=== PATIENT | female | born 1980 | race Caucasian/White ===

== ENCOUNTER 2019-01-27 21:33 | Emergency (ER) | payer OTHER ==
[~2019-01-27] VITALS: Ht 182.9 cm; Wt 163.3 kg
[2019-01-27] MEDS ORDERED: NEURONTIN800 MG (21:52)
[2019-01-27] MEDS ORDERED: HYDROCHLOROTHIA50 MG (21:52)
[2019-01-27] MEDS ORDERED: [UNRECOGNIZED DRUG - OTHER] (21:52)
[2019-01-27] MEDS ORDERED: LEVO-T75 MCG (21:52)
[2019-01-27] MEDS ORDERED: ULTRAM50 MG (21:53)
[2019-01-27] MEDS ORDERED: MOTRIN PM CAPL1 EACH (21:53)
[2019-01-28] MEDS ORDERED: BACTRIM DS TAB1 EACH PO (06:50)
[2019-01-28] MEDS ORDERED: MIRALAX510 GM PO (06:50)
[2019-01-28] MEDS ORDERED: INTESTINEX680 M1 PO (06:50)
== END 2019-01-28 07:29 ==
LOC: ER 21:33
DX: N39.0 Urinary tract infection, site not specified (principal); R10.31 Right lower quadrant pain

== ENCOUNTER 2019-05-04 16:41 | Emergency (ER) | payer OTHER ==
[~2019-05-04] VITALS: Ht 152.4 cm; Wt 166.9 kg
[~2019-05-04 16:41] MED LIST: BACTRIM DS TAB1 EACH PO; HYDROCHLOROTHIA50 MG; INTESTINEX680 M1 PO; LEVO-T75 MCG; MIRALAX510 GM PO; MOTRIN PM CAPL1 EACH; NEURONTIN800 MG; ULTRAM50 MG; [UNRECOGNIZED DRUG - OTHER]
== END 2019-05-04 20:36 | disposition home or self-care (01) ==
LOC: ER 16:41
DX: M54.5 Low back pain (principal)

== ENCOUNTER → 2019-06-29 | Outpatient (CLI) | payer OTHER | END | disposition home or self-care (01) | LOC: MRI 07:29 | DX: M54.5 Low back pain (principal) | CPT/HCPCS: 72148 ==

== ENCOUNTER 2020-02-06 07:47 | Outpatient (CLI) | payer OTHER | END 2020-02-06 07:59 | disposition home or self-care (01) | LOC: EKG 07:47 | PROVIDERS: ATTEND General Practice | DX: M48.062 Spinal stenosis, lumbar region with neurogenic claudication (principal); M43.16 Spondylolisthesis, lumbar region ==

== ENCOUNTER 2020-04-30 08:43 | Outpatient (CLI) | payer OTHER | END 2020-04-30 08:44 | disposition home or self-care (01) | LOC: RAD 08:43 | PROVIDERS: ATTEND General Practice | DX: M43.8X7 Other specified deforming dorsopathies, lumbosacral region (principal); M48.061 Spinal stenosis, lumbar region without neurogenic claudication ==

== ENCOUNTER 2020-08-02 08:38 | Outpatient (CLI) | payer OTHER | END 2020-08-02 08:40 | disposition home or self-care (01) | LOC: RAD 08:38 | DX: M51.36 Other intervertebral disc degeneration, lumbar region (principal) ==

== ENCOUNTER 2020-10-30 08:00 | Outpatient (CLI) | payer OTHER | END 2020-10-30 08:30 | disposition home or self-care (01) | LOC: PPH VACUNA 08:00 | DX: Z23 Encounter for immunization (principal) ==

== ENCOUNTER 2020-11-19 08:00 | Outpatient (CLI) | payer OTHER | END 2020-11-19 08:30 | disposition home or self-care (01) | LOC: PPH VACUNA 08:00 | DX: Z23 Encounter for immunization (principal) ==

== ENCOUNTER 2020-12-12 10:01 | Outpatient (CLI) | payer OTHER | END 2020-12-12 10:06 | disposition home or self-care (01) | LOC: RAD 10:01 | DX: M48.062 Spinal stenosis, lumbar region with neurogenic claudication (principal) ==

== ENCOUNTER 2021-10-30 08:34 | Outpatient (CLI) | payer OTHER | END 2021-10-30 08:41 | disposition home or self-care (01) | LOC: RAD 08:34 | DX: M25.551 Pain in right hip (principal); M25.552 Pain in left hip ==

== ENCOUNTER 2022-01-29 08:10 | Outpatient (CLI) | payer OTHER | END 2022-01-29 08:25 | disposition home or self-care (01) | LOC: PPH VACUNA 08:10 | PROVIDERS: ATTEND Emergency Medicine Pediatric Emergency Medicine | DX: Z23 Encounter for immunization (principal) ==

== ENCOUNTER 2023-04-20 07:24 | Outpatient (CLI) | payer OTHER | END 2023-04-20 07:29 | disposition home or self-care (01) | LOC: SONOGRAMA 07:24 | PROVIDERS: ATTEND General Practice | DX: E03.9 Hypothyroidism, unspecified (principal) ==

== ENCOUNTER 2024-12-11 19:42 | Emergency (ER) | payer OTHER ==
[~2024-12-11] VITALS: Ht 182.9 cm; Wt 167.8 kg
[2024-12-11] MEDS ORDERED: FAMOtidine 10 MG/ML (4ML VIAL) IV ONE (20:45)
[2024-12-11] MEDS ORDERED: 0.9 % SODIUM CHLORIDE 1,000 ML IV ONE (20:45)
[2024-12-11 21:54] LABS: BASO % 0.6 % (0.1-1.2); EOS # 0.07 (0.04-0.54); EOS % 0.6 % (0.7-7.0); LYMPH # 2.30 (1.18-3.74); LYMPH % 18.7 % (19.3-53.1); MEAN PLATELET VOLUME 11.60 fl (9.4-12.4); MONO # 0.90 (0.24-0.82); MONO % 7.3 % (4.7-12.5); NEUT # 8.88 (1.56-6.13); NEUT % 72.4 % (34.0-71.1); RED CELL DISTRIBUTION WIDTH 12.9 % (11.6-14.4)
[2024-12-11 21:57] LABS: URINE APPEARANCE Clear; URINE BILIRRUBIN Negative (NEGATIVE); URINE BLOOD Small; URINE COLOR Yellow; URINE GLUCOSE Negative (NEGATIVE); URINE KETONE Negative (NEGATIVE); URINE LEUKOCYTE Moderate; URINE NITRATE Negative; URINE PROTEIN Negative (NEGATIVE); URINE UROBILINOGEN 0.2 E.U./dl
[2024-12-11 21:58] LABS: URINE BACTERIA 2751.3 uL (0.0-1933); URINE EPITHELIAL CELLS 37.6 uL (0.0-38.8); URINE RBC 7.6 uL (0.0-20.8); URINE WBC 103.5 uL (0.0-23.2)
[2024-12-11 21:59] LABS: URINE CAST 0.14 uL (0.0-1.40)
[2024-12-11 22:06] LABS: INR 1.06
[2024-12-11] MEDS ORDERED: CIPROFLOXACIN IN 5 % DEXTROSE 400 MG/200 ML PIGGYBAG IV ONE (22:45)
[2024-12-11 23:58] LABS: ALT/SGPT 42.0 U/L (12-78); AST/SGOT 16.0 U/L (15-37); BILIRUBIN TOTAL 0.56 mg/dL (0.3-1.2); BUN CREA RATIO 11.0 (7.0-25.0); CREATININE SERUM 0.64 mg/dL (0.55-1.02); GFR 99.9; GLOBULINA 4.3 G/DL (2.4-3.5); GLUCOSE FASTING 107.0 mg/dL (65-100); OSMOLALITY SERUM 283.0 MOSM/KG (275-295)
== END 2024-12-12 02:55 | disposition home or self-care (01) ==
LOC: ER 19:42
PROVIDERS: General Practice
DX: R19.7 Diarrhea, unspecified (principal); R10.9 Unspecified abdominal pain; I10 Essential (primary) hypertension; E03.8 Other specified hypothyroidism
CPT/HCPCS: 36415; 74177; Q9965

== ENCOUNTER 2024-12-19 07:21 | Outpatient (CLI) | payer OTHER | END 2024-12-19 07:23 | disposition home or self-care (01) | LOC: MAMO-SONO 07:21 | PROVIDERS: ATTEND General Practice | DX: N60.11 Diffuse cystic mastopathy of right breast (principal); N60.12 Diffuse cystic mastopathy of left breast; N64.0 Fissure and fistula of nipple; N63.0 Unspecified lump in unspecified breast ==